=== PATIENT | female | born 1965 | race Caucasian/White ===

== ENCOUNTER 2017-06-25 06:53 | Day surgery (SDC) | payer BC ==
[~2017-06-25 06:53] MED LIST: Lactated Ringers 1,000 ML IV SCH
[2017-06-25] MEDS ORDERED: Propofol 200 MG/20 ML SDV ONE (07:38)
[2017-06-25] MEDS ORDERED: fentaNYL 100 MCG/2 ML SDV ONE (07:38)
--- NOTE | 2017-06-25 12:34 | OR ---
PREOPERATIVE DIAGNOSES: 1. Screening colonoscopy. 2. Family history of colon polyps - father. POSTOPERATIVE DIAGNOSIS: Sigmoid diverticulosis, otherwise normal exam. PROCEDURE PROPOSED: Total flexible colonoscopy. PROCEDURE DONE: Total flexible colonoscopy. INDICATION: This is a 52-year-old female who comes in for her 1st screening colonoscopy. She does have a history of her father with colon polyps. She denies any symptomatology. TECHNIQUE: The patient was brought to the endoscopy suite, placed in left lateral decubitus position. She was sedated with propofol per [employer]. The flexible video colonoscope was then passed transanally and under visualization advanced to the cecum. Examination revealed normal ascending, transverse, descending colon. Sigmoid colon revealed moderate diverticulosis and the rectum was normal. There was no evidence of any polyps, colitis or other abnormalities and the scope was then withdrawn. She tolerated the procedure well. IMPRESSION: 1. Sigmoid diverticulosis, otherwise normal exam. 2. Family history of polyps - father. PLAN: I feel that she should continue with colonic surveillance every 5 years hereafter due to her family history. SCM: 06/25/2017 08:45:59 MODL: 06/25/2017 09:15:13 /[id number]
== END 2017-06-25 09:29 | disposition home or self-care (01) ==
LOC: VM.SDS 06:53
PROVIDERS: ATTEND Surgery
DX: Z12.11 Encounter for screening for malignant neoplasm of colon (principal); K57.30 Diverticulosis of large intestine without perforation or abscess without bleeding; E11.9 Type 2 diabetes mellitus without complications; J45.909 Unspecified asthma, uncomplicated; E78.5 Hyperlipidemia, unspecified; K21.9 Gastro-esophageal reflux disease without esophagitis; Z83.71 Family history of colonic polyps; Z88.8 Allergy status to other drugs, medicaments and biological substances; Z91.018 Allergy to other foods; Z79.899 Other long term (current) drug therapy; Z87.891 Personal history of nicotine dependence
CPT/HCPCS: 00812; 45378; J2704; J3010; J7120